=== PATIENT | female | born 1965 | race Two or more races ===

== ENCOUNTER 2024-09-07 17:28 | Emergency (ER) | payer MEDICAID, SELFPAY ==
[2024-09-07 17:30] VITALS: BMI 28.5
[2024-09-07 18:01] VITALS: BP 146/68; PULSE 68; RESP 16; TEMP 37.2; O2SAT 98
--- NOTE | 2024-09-07 18:03 | XR_ITS ---
Examination: Duplex scan of the lower extremity, unilateral right complete Date and time of exam: September 07, 2024, 1812 hrs. Patient fell one week ago with injury to the right leg followed by right leg pain and swelling Technique: Duplex scan of the extremity veins using B-mode/grayscale imaging and Doppler spectral analysis and color flow Attention is directed to internal echogenicity, compression and augmentation involving these veins, color flow assessment, spectral analysis Findings: Major deep venous structures in the extremity demonstrate normal course and caliber. There is no evidence of deep vein thrombosis. Normal color flow and spectral analysis Impression: Negative for DVT..
--- NOTE | 2024-09-07 18:04 | PD.EDRME ---
Rapid Medical Screening Exam [facility] Arrival date/time: 09/07/24 17:28 59-year-old female with a history of hyperlipidemia, type 2 diabetes, hypertension presents to the emergency room with a chief complaint of right lower extremity swelling and pain x 1 month. I have greeted and performed a focused initial assessment of this patient. A comprehensive ED assessment and evaluation of the patient, analysis of all test results, and completion of the medical decision making process will be conducted by additional ED providers. Chief Complaint: Extremity Injury, Lower Vital signs: Vital Signs Temperature 99.0 F 09/07/24 18:01 Pulse Rate 68 09/07/24 18:01 Respiratory Rate 16 09/07/24 18:01 Blood Pressure 146/68 H 09/07/24 18:01 Pulse Oximetry (%) 98 09/07/24 18:01 Oxygen Delivery Method Room Air 09/07/24 18:01 Vital signs reviewed by provider: Yes
[2024-09-07 18:38] LABS: Basophils % (Auto) 1 % (0-2.5); Eosinophils # (Auto) 0.4 Thou/mm3 (0.0-0.5); Eosinophils % (Auto) 6 % (0-10); Hematocrit 40.3 % (36.0-46.0); Hemoglobin 13.3 g/dL (12.0-16.0); Immature Granulocytes % (Auto) 0 % (0-0); Immature Granulocytes Auto 0.01 Thou/mm3 (0.00-0.00); Lymphocytes # (Auto) 2.7 Thou/mm3 (1.0-4.8); Lymphocytes % (Auto) 41 % (10-50); Mean Corpuscular Hemoglobin 27.1 pg (25.0-35.0); Mean Corpuscular Volume 82 fL (80-100); Monocytes # (Auto) 0.4 Thou/mm3 (0.0-0.8); Monocytes % (Auto) 6 % (0-12); Neutrophils # (Auto) 3.1 Thou/mm3 (1.8-7.7); Neutrophils % (Auto) 46 % (37-80); Nucleated Red Blood Cell % 0 /100 WBC (0); Platelet Count 323 Thou/mm3 (140-440); RDW Standard Deviation 39.9 fL (36.4-46.3); White Blood Count 6.6 Thou/mm3 (3.6-11.0)
[2024-09-07 18:56] LABS: Alanine Aminotransferase 31 U/L (10-49); Albumin, Serum 4.5 gm/dL (3.4-4.8); Albumin/Globulin Ratio 1.6 (1.2-2.2); Alkaline Phosphatase 65 U/L (46-116); Anion Gap 12 (7-16); Aspartate Amino Transferase 26 U/L (0-34); BUN/Creatinine Ratio 26 Ratio (12-20); Bilirubin,Total 0.4 mg/dL (0.3-1.2); Blood Urea Nitrogen 13 mg/dL (9-23); Calcium 10.3 mg/dL (8.3-10.6); Calcium (Corrected) 10.3 mg/dL (8.5-10.1); Carbon Dioxide 25.1 mMol/L (20.0-31.0); Chloride 102 mMol/L (98-107); Creatinine (Component) 0.5 mg/dL (0.6-1.3); Estimated Creatinine Clearance 87.9 mL/min (>60); Globulin 2.8 gm/dL (2.3-3.5); Glucose 115 mg/dL (74-106); Osmolality,Calculated 278 (275-295); Potassium 3.9 mMol/L (3.4-5.1); Sodium 139 mMol/L (136-145); Total Protein 7.3 gm/dL (5.7-8.2); eGFR > 60 See Note
--- NOTE | 2024-09-07 22:02 | EDNOTE_ITS ---
Lower Extremity Injury RME/HPI General Chief Complaint: Extremity Injury, Lower Stated Complaint: RLE PAIN AND SWELLING Time Seen by Provider: 09/07/24 18:27 Arrival date/time: 09/07/24 17:28 Limitations: language barrier RME / HPI RME / HPI Narrative: 09/07/24 17:28 59-year-old female with a history of hyperlipidemia, type 2 diabetes, hypertension presents to the emergency room with a chief complaint of right lower extremity swelling and pain x 1 month. I have greeted and performed a focused initial assessment of this patient. A comprehensive ED assessment and evaluation of the patient, analysis of all test results, and completion of the medical decision making process will be conducted by additional ED providers. 220109/07/24 59 yo F w/ PMHx of HLD, DMII, HTN presents for evaluation of right lower ext remity swelling and pain x 1 month. Pt was seen by PCP today and sent to ED to rule out DVT. Patient denies trauma and describes pain as sharp with intermittent shooting down right leg. Denies rash, overlying skin changes, chest pain, shortness of breath, fever, chills, nausea, vomiting. Denies history of prior similar symptoms. Denies recent travel and known toxin exposure. Related Data Home Medications ?Medication ?Instructions ?Recorded ?Confirmed atorvastatin 10 mg tablet 10 mg PO QPM 05/07/21 benazepril 10 mg tablet 10 mg PO QDAY 05/07/2105/07 glipizide 10 mg tablet 10 mg PO QDAY 05/07/2105/07 metformin 1,000 mg tablet 1,000 mg PO BID 05/07/2110/21 nitrofurantoin macrocrystal 100 mg 100 mg PO BID 05/0705/07/21 capsule Previous Rx's ?Medication ?Instructions ?Recorded oxycodone-acetaminophen 5 mg-325 1 tab PO Q8H PRN pain #10 tabs 09/07/24 mg tablet (Percocet) Allergies Allergy/AdvReac Type Severity Reaction Status Date / Time shrimp Allergy Swelling Verified 02/09/24 21:03 of Lip/Tongue/Throat Review of Systems Review of Systems Narrative Review of Systems: Per patient and patient's daughter. Constitutional Constitutional: Denies body ache(s), Denies chills, Denies fever(s), Denies headache(s) and Denies night sweats Eyes Eyes: Denies blurry vision and Denies change in vision ENT Ears, Nose, Mouth, and Throat: Denies headache(s), Denies neck pain and Denies vertigo Cardiovascular Cardiovascular: Denies chest pain, Denies dyspnea, Denies edema, Denies irregular heart rhythm, Reports leg edema (Right lower extremity.), Denies palpitations and Denies pedal edema Respiratory Respiratory: Denies cough, Denies dyspnea and Denies hemoptysis Gastrointestinal Gastrointestinal: Denies nausea and Denies vomiting Genitourinary Genitourinary: Denies dysuria Musculoskeletal Musculoskeletal: Denies back pain, Denies neck pain, Denies numbness, Reports radiating pain into limb (Right lower extremity.) and Denies tingling Integumentary/Breasts Skin/Breast: Denies change in pigmentation, Denies erythema, Denies furuncle, Denies new lesions, Denies non-healing lesions, Denies skin pain, Denies sores, Denies skin swelling, Denies unusual bruising and Denies wounds Neurologic Neurologic: Denies abnormal movements, Denies headache(s), Denies numbness, Denies tingling and Denies vertigo Endocrine Endocrine: Denies palpitations Past Medical History Past Medical History NEUROLOGIC: Positive Brain Tumor CARDIAC: Positive Hypercholesterolemia and Hypertension; Negative Congestive Heart Failure RESPIRATORY: Negative Chronic Obstructive Pulmonary Disease (COPD) GENITOURINARY: Negative Renal Disease ENDOCRINE: Positive Diabetes Mellitus Type 2; Negative Diabetes Mellitus Type 1 Social History SMOKING STATUS: Never smoker ED Exam General Limitations: Present language barrier General appearance: Present alert and in no apparent distress Head Head exam: Present atraumatic and normocephalic Eye Eye exam: Present normal appearance and EOMI ENT ENT exam: Present mucous membranes moist and normal external ear exam Neck Neck exam: Present normal inspection and full ROM Chest Chest inspection: Present normal inspection and symmetric chest wall rise Respiratory Respiratory exam: Present normal lung sounds bilaterally; Absent respiratory distress or wheezes Cardiovascular Cardiovascular exam: Present regular rate and +S1 Abdominal Exam Abdominal exam: Present soft; Absent distention Expanded Lower Extremity Exam Upper leg exam: Present full ROM, tenderness (Focal area of tenderness right lateral thigh near femoral head with slight induration. No overlying warmth or erythema. No bruising. Full range of motion of bilateral hip joint.) and swelling (Mild swelling lateral femoral head right thigh.) Knee exam: Present normal inspection and full ROM Lower leg exam: Present normal inspection and full ROM; Absent swelling Ankle exam: Present normal inspection and full ROM Foot/toe exam: Present normal inspection and full ROM Neurovascular/Tendon exam: Present normal capillary refill; Absent pulse deficit Gait: observed and normal Back Exam Back exam: Present normal inspection and full ROM; Absent tenderness, paraspinal tenderness or vertebral tenderness Neurological Exam Neurological exam: Present alert, oriented X3 and normal gait Psychiatric Psychiatric exam: Present normal affect Skin Skin exam: Present warm and dry Course Quality Measures none Orders Category Date Time Status US venous doppler LE RT Stat Exams 09/07/24 18:03 Completed CBC Stat Lab 09/07/24 18:20 Completed CMP [Comprehensive Metabolic Panel] Stat Lab 09/07/24 18:20 Completed HYDROcodone*/APAP 5/325 [[place] 5/325] Med 09/07/24 22:01 Discontinued 1 tab PO X1 ONE Lidocaine 5% Patch Med 09/07/24 22:01 Discontinued 1 patch TOP X1 ONE Vital Signs Vital signs: Vital Signs Temperature 99.0 F 09/07/24 18:01 Pulse Rate 68 09/07/24 18:01 Respiratory Rate 16 09/07/24 18:01 Blood Pressure 146/68 H 09/07/24 18:01 Pulse Oximetry (%) 98 09/07/24 18:01 Oxygen Delivery Method Room Air 09/07/24 18:01 98% pulse ox on room air, within normal limits. Extremity Injury, Lower MDM Narrative MDM Narrative:: Very pleasant 59-year-old female brought in by daughter after being seen by primary care for right upper thigh pain x 1 month to rule out DVT. Vital signs reassuring. Ultrasound negative for DVT today. Given atraumatic pain and stable gait less concern for pelvic fracture at this time therefore x-rays were deferred given clinical picture. Patient afebrile with intermittent pain which points away for him osteomyelitis therefore inflammatory markers were not obtained today. Possible neuropathy however small area of induration right lateral hip. Ultimately the patient was discharged with plan for follow-up with primary care for further evaluation of her symptoms. I discharged her with a short course of analgesics and lidocaine patch. We did discuss incidental finding of JM on labs today and I advised patient and her daughter to avoid NSAIDs for the time being until she can receive further workup for renal function. Grateful to have participated in the care of patient today. Patient data External records reviewed:: [facility] previous records Clinical information provided by:: patient and family Social determinants that could affect healthcare access:: none Patient has the following chronic illnesses:: Hyperlipidemia and hypertension. How is presenting disease/condition affected by chronic disease/condition?: uneffected by Evaluation data The following diagnostics were reviewed and interpreted by me:: lab results and radiology exam(s) Lab and/or radiology exams considered but not ordered:: Considered not ordered. Interpretation Summary: Ultrasound negative for DVT To today. No gross electrolyte abnormalities or evidence of acute hemorrhage. Medications / Prescriptions Medications or Prescriptions considered but not ordered:: Rx given. Medication administrations:: Medication Administration History Discontinued Medications Hydrocodone Bitart/Acetaminophen (Hydrocodone/Apap 5/325 Tablet) 1 tab PO X1 ONE Stop: 09/07/24 22:02 Last Admin: 09/07/24 22:15 Dose: 1 tab Documented By: ISABELLE Lidocaine (Lidocaine 5% 1 Patch) 1 patch TOP X1 ONE Stop: 09/07/24 22:02 Last Admin: 09/07/24 22:16 Dose: 1 patch Documented By: ISABELLE Rx given. Consultations Consultation(s) initiated? (list below): No Diagnosis Extremity Injury, Lower Differential Diagnosis: acute internal derangement of knee, fracture of femur, fracture of hip and other (DVT, neuropathy, abscess, osteomyelitis.) Most likely diagnosis given after review of the tests above:: Right thigh pain. Admission Indicated Admission indicated?: not indicated Admission Request Was there a request for admission?: No Disposition Plan Disposition Plan: Discharge Discharge Attestation Discharge Attestation: The patient and all family members were given an opportunity to ask questions and understood the discharge instructions. Discharge instructions specifically effects, indications for sooner follow up or return to the emergency department, and the expected course of current diagnosis. Patient condition: Stable Discharge Plan Plan Patient Disposition: HOME (Self Care) Disposition Comment: stable Prescriptions/Referrals Prescriptions/Med Rec: New oxycodone-acetaminophen [Percocet] 5-325 mg tablet 1 tab PO Q8H MDD 3 PRN (Reason: pain) Qty: 10 0RF No Action atorvastatin 10 mg Tablet 10 mg PO QPM glipizide 10 mg Tablet 10 mg PO QDAY metformin 1,000 mg Tablet 1,000 mg PO BID nitrofurantoin macrocrystal 100 mg Capsule 100 mg PO BID benazepril 10 mg Tablet 10 mg PO QDAY Referrals: No Primary/Family,Physician [Primary Care Provider] - In 1 week Problem List Clinical Impression: Left thigh pain Impression comment: Take Percocet every 8 hours as needed for pain. Follow-up with primary care within the next 24 to 48 hours for reevaluation and further management of left thigh pain. Return to the ED if your symptoms worsen or change. Patient/Caregiver Discharge Instructions Education Materials: ED Myalgias Print Language: Indonesian Stand Alone Forms: Maria L Award Info., Patient Portal Info Letter PA/RADIATOR CORE TESTER Supervising Physician PA/RADIATOR CORE TESTER Supervising Physician: Dr. Eng
[2024-09-07] MEDS: HYDROcodone/APAP 5/325 TABLET 1 TAB PO (22:15)
[2024-09-07] MEDS: LIDOCAINE 5% 1 PATCH TOP (22:16)
== END 2024-09-07 22:23 | disposition home or self-care (01) ==
PROVIDERS: Nurse Practitioner Family; Emergency Provider Emergency Medicine
DX: M79.652 Pain in left thigh (principal); E11.9 Type 2 diabetes mellitus without complications; E78.5 Hyperlipidemia, unspecified; I10 Essential (primary) hypertension
CPT/HCPCS: 36415; 80053; 85025; 93971; 99284; J3490; A9270

== ENCOUNTER → 2024-12-31 | Outpatient (CLI) | payer MEDICAID, SELFPAY ==
--- NOTE | 2024-12-31 07:00 | XR_ITS ---
Examination: MRI right hip without intravenous contrast. Date and time of exam: December 31, 2024 0733 hours INDICATIONS: Right hip pain beginning July 2024 Technique: Multiple MRI images of the right hip have been obtained T1 weighted coronal sections, TR 500, TE 12 Proton density coronal fat saturated images, TR 3000, TE 71 T2-weighted coronal images, 5850, TE 104 T1-weighted axial images, TR 521, TE 12 T2-weighted axial fat suppressed images, TR 5730, TE 103. Findings: Moderate narrowing hip joints No marrow edema, fracture bone contusion or avascular necrosis involving right hip Small [id number] high-resolution images demonstrate no right hip labral tear Left hip bones of the pelvis intact Urinary bladder intact IMPRESSION: Moderate narrowing hip joints bilaterally No bone contusion marrow edema or occult fracture or avascular necrosis involving the right hip
== END | disposition home or self-care (01) ==
LOC: SMRI 07:08
PROVIDERS: PCP Physician Assistant; Referring Provider Podiatrist; Visit Provider Podiatrist
DX: M25.851 Other specified joint disorders, right hip (principal)
CPT/HCPCS: 73721

== ENCOUNTER → 2025-02-23 | Outpatient (CLI) | payer MEDICAID, SELFPAY ==
--- NOTE | 2025-02-23 07:00 | XR_ITS ---
Examination: MRI right femur, without contrast Date and time of exam: February 23, 2025 0741 hours, comparison MRI right hip December 31, 2024 INDICATIONS: Right hip right femur pain beginning July 2024, intermittent swelling Technique: Multiple axial sagittal and coronal images of the right femur have been obtained with the Siemens high-resolution 1.5 Nikky MRI scanner. Images obtained include T2-weighted fat-suppressed sagittal sections, TR 3500, TE 46, T2 weighted coronal fat suppressed images, TR 3050, TE 84, T2-weighted transverse fat suppressed images, TR 3260, TE 63, proton density transverse images, TR 4720 TE 46, and T1 weighted coronal images, TR 560, TE 13. Findings: Moderate narrowing hip joints Homogeneous marrow signal right femoral head neck intertrochanteric subtrochanteric region as well as femoral shaft Cortex of the femoral shaft intact No cortical erosions or endosteal scalloping Flexor extensor muscles intact with no soft tissue mass No edema in the subcutaneous fatty tissues surrounding the femur IMPRESSION: Moderate narrowing hip joints No hip or femur fracture, no avascular necrosis bone contusion or marrow edema If there is intermittent swelling in the clinical presentation, consider repeat venous Doppler right lower extremity and consider arterial Doppler lower extremity following
== END | disposition home or self-care (01) ==
PROVIDERS: PCP Nurse Practitioner Family; Referring Provider Podiatrist; Visit Provider Podiatrist
DX: M25.851 Other specified joint disorders, right hip (principal)
CPT/HCPCS: 73718